=== PATIENT | male | born 1975 ===

== ENCOUNTER 2021-02-01 16:53 | Emergency (ER) | payer SELFPAY ==
[~2021-02-01] VITALS: Ht 185.4 cm; Wt 102.1 kg
[2021-02-01 20:18] VITALS: BP 108/73
== END 2021-02-01 21:16 | disposition home or self-care (01) ==
LOC: ER 16:53
DX: S76.912A Strain of unspecified muscles, fascia and tendons at thigh level, left thigh, initial encounter (principal); X58.XXXA Exposure to other specified factors, initial encounter; Y93.39 Activity, other involving climbing, rappelling and jumping off; Y92.89 Other specified places as the place of occurrence of the external cause; Y99.8 Other external cause status